=== PATIENT | male | born 1990 | race Caucasian/White ===

== ENCOUNTER 2021-06-16 17:31 | Emergency (ER) | payer MEDICAID ==
[~2021-06-16] VITALS: Ht 182.2 cm; Wt 108.4 kg
--- NOTE | 2021-06-16 18:23 | ED Cough/URI ---
General Chief Complaint: Cough/Cold/Flu Symptoms Stated Complaint: COUGH,SWEATING,CONGESTION,DIZZINESS Nursing Triage Note: Pt ambulatory into ER with complaint of cough/fatigue x2 days. Pt states that he wants to make sure he doesn't have covid. Source: patient Exam Limitations: no limitations History of Present Illness Date Seen by Provider: Jun 16, 2021 Time Seen by Provider: 18:22 Initial Comments This is a 31-year-old male who presents to the ER with complaints of cough, fatigue for the past 2 days Allergies and Home Medications Allergies Coded Allergies: No Known Drug Allergies (Unverified , 06/20/12) Past Yivrhkt-Fuioah-Zarzhz Hx Patient Social History Tobacco Use?: No Use of E-Cig and/or Vaping dev: No Substance use?: No Alcohol Use?: No Pt feels they are or have been: No Immunizations Up To Date Influenza Vaccine Up-to-Date: No; Not Current Past Medical History Reproductive Disorders: No Physical Exam Vital Signs - First Documented Capillary Refill : Less Than 3 Seconds Height: '" Weight: lbs. oz. kg; 32.00 BMI Method: Progress/Results/Core Measures Suspected Sepsis SIRS Temperature: Pulse: 89 Respiratory Rate: 20 Laboratory Tests 06/16/21 18:39: White Blood Count 4.9 Blood Pressure 120 /81 Mean: 94 Laboratory Tests 06/16/21 18:39: Creatinine 1.28, INR Comment 0.9, Platelet Count 131, Total Bilirubin 0.6 Results/Orders Lab Results Laboratory Tests Test 06/16/21 18:05 06/16/21 18:34 06/16/21 18:39 Range/Units SARS-CoV-2 RNA (RT-PCR) Detected H Not Detecte Glucometer 117 H 70-110 MG/DL White Blood Count 4.9 4.3-11.0 10^3/uL Red Blood Count 5.30 4.30-5.52 10^6/uL Hemoglobin 15.8 13.3-17.7 g/dL Hematocrit 47 40-54 % Mean Corpuscular Volume 89 80-99 fL Mean Corpuscular Hemoglobin 30 25-34 pg Mean Corpuscular Hemoglobin Concent 34 32-36 g/dL Red Cell Distribution Width 11.9 10.0-14.5 % Platelet Count 131 130-400 10^3/uL Mean Platelet Volume 11.3 9.0-12.2 fL Immature Granulocyte % (Auto) 0 % Neutrophils (%) (Auto) 63 42-75 % Lymphocytes (%) (Auto) 26 12-44 % Monocytes (%) (Auto) 11 0-12 % Eosinophils (%) (Auto) 0 0-10 % Basophils (%) (Auto) 0 0-10 % Neutrophils # (Auto) 3.1 1.8-7.8 10^3/uL Lymphocytes # (Auto) 1.3 1.0-4.0 10^3/uL Monocytes # (Auto) 0.5 0.0-1.0 10^3/uL Eosinophils # (Auto) 0.0 0.0-0.3 10^3/uL Basophils # (Auto) 0.0 0.0-0.1 10^3/uL Immature Granulocyte # (Auto) 0.0 0.0-0.1 10^3/uL Percent Immature Platelet Fraction 6.0 0.0-7.6 % Prothrombin Time 12.9 12.2-14.7 SEC INR Comment 0.9 0.8-1.4 Activated Partial Thromboplast Time 28 24-35 SEC D-Dimer 0.45 0.00-0.49 UG/ML Sodium Level 138 135-145 MMOL/L Potassium Level 4.0 3.6-5.0 MMOL/L Chloride Level 105 98-107 MMOL/L Carbon Dioxide Level 23 21-32 MMOL/L Anion Gap 10 5-14 MMOL/L Blood Urea Nitrogen 19 H 7-18 MG/DL Creatinine 1.28 0.60-1.30 MG/DL Estimat Glomerular Filtration Rate 66 BUN/Creatinine Ratio 15 Glucose Level 130 H 70-105 MG/DL Calcium Level 8.8 8.5-10.1 MG/DL Corrected Calcium 8.5 8.5-10.1 MG/DL Magnesium Level 2.1 1.6-2.4 MG/DL Total Bilirubin 0.6 0.1-1.0 MG/DL Aspartate Amino Transf (AST/SGOT) 65 H 5-34 U/L Alanine Aminotransferase (ALT/SGPT) 106 H 0-55 U/L Alkaline Phosphatase 73 40-136 U/L Total Creatine Kinase 184 30-200 U/L Myoglobin 76.2 10.0-92.0 NG/ML Troponin I < 0.028 <0.028 NG/ML Total Protein 7.9 6.4-8.2 GM/DL Albumin 4.4 3.2-4.5 GM/DL Lipase 35 8-78 U/L My Orders Orders - MEMO ALVAREZ APRN Covid 19 Inhouse Test (06/16/21 18:22) Ns Iv 1000 Ml (Sodium Chloride 0.9%) (06/16/21 18:45) Cbc With Automated Diff (06/16/21 18:42) Magnesium (06/16/21 18:42) Chest 1 View, Ap/Pa Only (06/16/21 18:42) Ekg Tracing (06/16/21 18:42) Comprehensive Metabolic Panel (06/16/21 18:42) Myoglobin Serum (06/16/21 18:42) Protime With Inr (06/16/21 18:42) Partial Thromboplastin Time (06/16/21 18:42) O2 (06/16/21 18:42) Monitor-Rhythm Ecg Trace Only (06/16/21 18:42) Ed Iv/Invasive Line Start (06/16/21 18:42) Creatine Kinase (06/16/21 18:42) Lipase (06/16/21 18:42) Troponin I (06/16/21 18:42) Ns Iv 1000 Ml (Sodium Chloride 0.9%) (06/16/21 18:43) Fibrin Degradation Products (06/16/21 18:39) Ns Iv 1000 Ml (Sodium Chloride 0.9%) (06/16/21 19:45) Medications Given in ED Current Medications Medications Dose Ordered Sig/Priscila Route Start Time Stop Time Status Last Admin Dose Admin Sodium Chloride 1,000 ml @ 999 mls/hr Q1H ONCE IV 06/16/21 18:45 06/16/21 19:45 DC 06/16/21 18:51 999 MLS/HR Sodium Chloride 1,000 ml @ 999 mls/hr Q1H ONCE IV 06/16/21 19:45 06/16/21 20:45 06/16/21 19:46 999 MLS/HR Vital Signs/I&O 06/16/21 06/16/21 17:57 17:57 Temp 36.9 Pulse 89 Resp 20 B/P (MAP) 120/81 (94) Pulse Ox 98 O2 Delivery Room Air Room Air Capillary Refill : Less Than 3 Seconds Blood Pressure Mean: 94 Departure Impression Primary Impression: COVID-19 Disposition: 01 HOME, SELF-CARE Condition: Improved Departure-Patient Inst. Decision time for Depature: 20:25 Referrals: NO,LOCAL PHYSICIAN (PCP/Family) Primary Care Physician Patient Instructions: COVID-19 ED Add. Discharge Instructions: Plan: 1. Isolate at home for the next 10 days or to you release for [facility]. Anybody living in the home will need to quarantine as well for the next 14 days. 2. Drink plenty of fluids, you may take Tylenol ibuprofen as needed for pain or fever per the package. 3. Return to the emergency department if you experience any new, concerning, worsening symptoms. All discharge instructions reviewed with patient and/or family. Voiced understanding. Work/School Note: Work Release Form Date Seen in the Emergency Department: Jun 16, 2021 Return to Work: Jun 26, 2021 MEMO ALVAREZ [employer]LYST Jun 16, 2021 18:22
[2021-06-16] MEDS ORDERED: NS IV 1000 ML 1,000 ML ONE (18:43)
[2021-06-16] MEDS ORDERED: NS IV 1000 ML 1,000 ML IV ONE ×2 (18:45→19:45)
[2021-06-16 18:54] LABS: EOSINOPHILS % (AUTO) 0 % (0-10); MEAN CORPUSCULAR VOLUME 89 fL (80-99)
[2021-06-16 18:55] LABS: BASOPHILS % (AUTO) 0 % (0-10); HEMATOCRIT 47 % (40-54); HEMOGLOBIN 15.8 g/dL (13.3-17.7); LYMPHOCYTES # (AUTO) 1.3 10^3/uL (1.0-4.0); LYMPHOCYTES % (AUTO) 26 % (12-44); MEAN CORPUSCULAR HEMOGLOBIN 30 pg (25-34); MEAN CORPUSCULAR HGB CONC 34 g/dL (32-36); MEAN PLATELET VOLUME 11.3 fL (9.0-12.2); MONOCYTES # (AUTO) 0.5 10^3/uL (0.0-1.0); MONOCYTES % (AUTO) 11 % (0-12); NEUTROPHILS # (AUTO) 3.1 10^3/uL (1.8-7.8); NEUTROPHILS % (AUTO) 63 % (42-75); PLATELET COUNT 131 10^3/uL (130-400); WHITE BLOOD COUNT 4.9 10^3/uL (4.3-11.0)
[2021-06-16 19:10] LABS: FIBRIN DEGRADATION PRODUCTS 0.45 UG/ML (0.00-0.49); INR 0.9 (0.8-1.4); PROTHROMBIN TIME PATIENT 12.9 SEC (12.2-14.7)
[2021-06-16 19:20] LABS: ALBUMIN 4.4 GM/DL (3.2-4.5); CALCIUM 8.8 MG/DL (8.5-10.1); CREATININE SERUM 1.28 MG/DL (0.60-1.30); TOTAL PROTEIN 7.9 GM/DL (6.4-8.2)
--- NOTE | 2021-06-16 19:42 | Diagnostic Imaging Report ---
INDICATION: Cough, fatigue, chest pain, onset 2 days ago. Covid positive.. TECHNIQUE: Single view chest 7:22 PM. CORRELATION STUDY: None FINDINGS: The heart size, mediastinal configuration and pulmonary vascularity are within normal limits. There is limited depth of inspiration. However, no definitive consolidation is a suggested. IMPRESSION: 1. Negative for acute abnormality of the chest. Dictated by: Dictated on workstation # [id number]
[2021-06-16 20:02] LABS: BILIRUBIN,TOTAL 0.6 MG/DL (0.1-1.0); MAGNESIUM 2.1 MG/DL (1.6-2.4)
[2021-06-16 20:39] VITALS: BP 134/70
== END 2021-06-16 20:39 | disposition home or self-care (01) ==
LOC: EDUNIT# 17:31 → ER 17:34
DX: U07.1 COVID-19 (principal)
CPT/HCPCS: 36415; 71045; 80053; 82550; 82947; 83690; 83735; 83874; 84484; 85025; 85379; 85610; 85730; 87636; 93005; 93041